=== PATIENT | female | born 1965 | race Caucasian/White ===

== ENCOUNTER 2019-02-22 18:04 | Outpatient (CLI) | payer BC | END 2019-02-22 18:05 | disposition critical access hospital (66) | LOC: EMS 18:04 | PROVIDERS: ATTEND Surgery | DX: R10.10 Upper abdominal pain, unspecified (principal); R06.02 Shortness of breath | CPT/HCPCS: A0425; A0427 ==

== ENCOUNTER 2019-02-22 18:26 | Emergency (ER) | payer BC ==
--- NOTE | 2019-02-22 18:52 | ED Physician Documentation ---
PD HPI ABD PAIN - Stated complaint Stated Complaint: ABD/CP PAIN - Chief complaint Chief Complaint: Abd Pain - History obtained from History obtained from: Patient, Family - History of Present Illness Timing - onset: Today Timing - duration: Hours (1) Timing - details: Abrupt onset Pain level max: 10 Pain level now: 2 Quality: Aching, Pain Location: Epigastric Radiation: Chest Improved by: Other (nothing) Worsened by: Other (nothing) Associated symptoms: Nausea. No: Fever, Vomiting, Hematemesis, Diarrhea, Constipation, Melena, Hematochezia, Dysuria, Hematuria Similar symptoms before: Diagnosis ("gallbladder attacks") Recently seen: Not recently seen Review of Systems Constitutional: denies: Fever, Chills Throat: denies: Sore throat Cardiac: denies: Chest pain / pressure Respiratory: denies: Cough GI: denies: Vomiting, Diarrhea Skin: denies: Rash Musculoskeletal: denies: Neck pain, Back pain PD PAST MEDICAL HISTORY - Past Medical History Past Medical History: Yes Endocrine/Autoimmune: HyPOthyroidism - Past Surgical History Past Surgical History: Yes /[employer]: Hysterectomy - Present Medications Home Medications: Ambulatory Orders Medication Instructions Recorded Confirmed Ondansetron Odt [Zofran] 4 mg TL Q6H PRN #10 tablet 02/22/19 Oxycodone HCl/Acetaminophen 1 - 2 each PO Q6H PRN #14 tablet 02/22/19 [Percocet 5-325 mg Tablet] Thyroid,Pork [Nature-Throid] 16.25 mg PO 02/22/19 - Allergies Allergies/Adverse Reactions: Allergies Allergy/AdvReac Type Severity Reaction Status Date / Time No Known Drug Allergies Allergy Verified 02/22/19 18:36 - Living Situation Living Situation: reports: With family Living Arrangement: reports: At home - Social History Does the pt smoke?: No Does the pt have substance abuse?: No - Family History Family history: reports: Non contributory PD ED PE NORMAL - Vitals Vital signs reviewed: Yes - General General: Alert and oriented X 3, No acute distress, Well developed/nourished - HEENT HEENT: PERRL, Moist mucous membranes - Neck Neck: Supple, no meningeal sign - Cardiac Cardiac: RRR, Strong equal pulses - Respiratory Respiratory: No respiratory distress, Clear bilaterally - Abdomen Abdomen: Soft, Non tender, Non distended - Back Back: No CVA TTP, No spinal TTP - Derm Derm: Warm and dry, No rash - Extremities Extremities: No edema, No calf tenderness / cord - Neuro Neuro: Alert and oriented X 3 - Psych Psych: Normal mood, Normal affect Results - Vitals Vitals: Vital Signs - 24 hr 02/22/19 02/22/19 02/22/19 18:34 19:16 21:22 Temperature 36.2 C L Heart Rate 94 78 79 Respiratory 16 13 16 Rate Blood Pressure 170/66 H 144/79 H 139/70 H O2 Saturation 99 97 96 Oxygen O2 Source Room air - EKG (time done) 1826 Rate: Rate (enter#) (79) Rhythm: NSR [place]: Normal Intervals: Normal [place] QRS: Normal Ischemia: Normal ST segments - Labs Labs: Laboratory Tests 02/22/19 02/22/19 02/22/19 14:48 14:48 19:00 WBC 8.8 RBC 4.73 Hgb 13.9 Hct 42.5 MCV 89.9 MCH 29.4 MCHC 32.7 RDW 13.2 Plt Count 253 MPV 10.1 Neut # (Auto) 6.4 Lymph # (Auto) 1.2 L [place] # (Auto) 0.7 Eos # (Auto) 0.5 Baso # (Auto) 0.1 Absolute Nucleated RBC 0.00 Nucleated RBC % 0.0 Sodium 139 Potassium 3.5 Chloride 103 Carbon Dioxide 23 Anion Gap 13.0 BUN 14 Creatinine 0.8 Estimated GFR (MDRD) 75 L Glucose 149 H Calcium 9.5 Total Bilirubin 0.6 AST 24 ALT 20 Alkaline Phosphatase 89 Total Protein 7.4 Albumin 4.2 Globulin 3.2 Albumin/Globulin Ratio 1.3 Lipase 37 Urine Color YELLOW Urine Clarity CLEAR Urine pH 5.0 Ur Specific [place] >=1.030 H Urine Protein NEGATIVE Urine Glucose (UA) NEGATIVE Urine Ketones NEGATIVE Urine Occult Blood NEGATIVE Urine Nitrite NEGATIVE Urine Bilirubin NEGATIVE Urine Urobilinogen 0.2 (NORMAL) Ur Leukocyte Esterase NEGATIVE Ur Microscopic Review NOT INDICATED Urine Culture Comments NOT INDICATED Urine HCG, Qual NEGATIVE - Rads (name of study) RUQ US Radiology: Prelim report reviewed, EMP read contemporaneously, See rad report (Cholelithiasis. Fatty liver.) PD MEDICAL DECISION MAKING - ED course Complexity details: reviewed results, re-evaluated patient, considered differential, d/w patient ED course: 53-year-old female with what appears to be biliary colic. Pain well controlled. Symptoms resolved. No cholecystitis on ultrasound. We will have her follow-up with surgery as an outpatient. She is well-appearing, nontoxic. Afebrile. No evidence of acute coronary syndrome. Patient counseled regarding signs and symptoms for which I believe and urgent re-evaluation would be necessary. Patient with good understanding of and agreement to plan and is comfortable going home at this time This document was made in part using voice recognition software. While efforts are made to proofread this document, sound alike and grammatical errors may occur. Departure - Departure Disposition: Home, Self Care Clinical Impression: Biliary colic Condition: Good Instructions: ED Gallstone W Biliary Colic Follow-Up: Ortega Van MD [Provider Admit Priv/Credential] - TERE EVANS [place] [Primary Care Provider] - Within 1 week Prescriptions: Ondansetron Odt [Zofran] 4 mg TL Q6H PRN #10 tablet PRN Reason: Nausea / Vomiting Oxycodone HCl/Acetaminophen [Percocet 5-325 mg Tablet] 1 - 2 each PO Q6H PRN #14 tablet PRN Reason: pain Comments: Return if you worsen. Follow-up with your doctor for further care. You should be referred to a surgeon to have your gallbladder removed. you should follow a low-fat diet. Return especially for worsening pain, fevers or vomiting. Do not drink alcohol or drive while on narcotic pain medicine. Note that many narcotic pain relievers also contain tylenol/acetaminophen. Please ensure that your total dose of acetaminophen from all sources does not exceed 3 grams (3000mg) per day. You may constipated on this medication, take a stool softener such as "Colace" twice a day while you are on it. Also recommend a [id number]-lty-genakpf laxative such as senna or MiraLAX any day that you do not have a bowel movement. If you received narcotic pain medication in the emergency department, do not drive or operate machinery for the next 24 hours. Discharge Date/Time: 02/22/19 21:41
[2019-02-22 18:54] LABS: BASOPHILS # (AUTO) 0.1 10^3/uL (0.0-0.1); BASOPHILS % (AUTO) 0.8 %; EOSINOPHILS # (AUTO) 0.5 10^3/uL (0.0-0.7); EOSINOPHILS % (AUTO) 5.2 %; HGB - HEMOGLOBIN 13.9 g/dL (12.0-16.0); LYMPHOCYTES # (AUTO) 1.2 10^3/uL (1.5-3.5); LYMPHOCYTES % (AUTO) 13.1 %; MEAN CORPUSCULAR HEMOGLOBIN 29.4 pg (27.0-31.0); MEAN CORPUSCULAR HGB CONC 32.7 g/dL (32.0-36.0); MEAN CORPUSCULAR VOLUME 89.9 fL (81.0-99.0); MEAN PLATELET VOLUME 10.1 fL (7.9-10.8); MONOCYTES # (AUTO) 0.7 10^3/uL (0.0-1.0); MONOCYTES % (AUTO) 8.3 %; NEUTROPHILS # (AUTO) 6.4 10^3/uL (1.5-6.6); NEUTROPHILS % (AUTO) 72.3 %; PLT - PLATELET COUNT 253 10^3/uL (130-450); RED BLOOD COUNT 4.73 10^6/uL (4.20-5.40); RED CELL DISTRIBUTION WIDTH 13.2 % (12.0-15.0); WHITE BLOOD COUNT 8.8 x10^3/uL (4.8-10.8)
[2019-02-22 19:03] LABS: BILIRUBIN,URINE NEGATIVE (NEGATIVE); GLUCOSE, URINE (UA) NEGATIVE (NEGATIVE); KETONES,URINE (UA) NEGATIVE (NEGATIVE); LEUKOCYTE ESTERASE, URINE NEGATIVE (NEGATIVE); NITRITE,URINE NEGATIVE (NEGATIVE); OCCULT BLOOD,URINE NEGATIVE (NEGATIVE); PROTEIN,URINE NEGATIVE (NEGATIVE); UROBILINOGEN,URINE 0.2 (NORMAL) E.U./dL (NORMAL)
[2019-02-22 19:06] LABS: CLARITY,URINE CLEAR (CLEAR)
[2019-02-22] MEDS ORDERED: HYDROmorphone 1 MG/ML CARPUJECT IVP STA (19:06)
[2019-02-22 19:07] LABS: HCG UR QUAL NEGATIVE
[2019-02-22 19:08] LABS: ALBUMIN 4.2 g/dL (3.2-5.5); ALBUMIN/GLOBULIN RATIO 1.3 (1.0-2.2); BILIRUBIN,TOTAL 0.6 mg/dL (0.2-1.0); CALCIUM 9.5 mg/dL (8.5-10.3); CREATININE 0.8 mg/dL (0.4-1.0); TOTAL PROTEIN 7.4 g/dL (6.7-8.2)
--- NOTE | 2019-02-22 20:38 | Ultrasound Report ---
Reason: RUQ abd pain Procedure Date: 02/22/2019 Accession Number: [id number] / [id number] Procedure: US - Abdomen Limited CPT Code: FULL RESULT: EXAM: ABDOMEN ULTRASOUND LIMITED, RUQ EXAM DATE: 02/22/2019 08:00 PM. CLINICAL HISTORY: RUQ abd pain. COMPARISON: None. TECHNIQUE: Real-time scanning was performed with static images obtained. FINDINGS: Liver: Diffusely echogenic. No masses. Normal overall size, 16.4 cm. Main portal vein flow: Hepatopetal. Gallbladder: Large gallstone measuring 3.1 cm with associated sludge versus tiny stones. No significant wall thickening. No localized tenderness. Biliary System: CBD measures 5 mm. No intrahepatic or extrahepatic ductal dilatation. Other: Unremarkable right kidney and visualized portions of pancreas. IMPRESSION: 1. Cholelithiasis. 2. Fatty liver. RADIA
[2019-02-22 21:22] VITALS: BP 139/70
== END 2019-02-22 21:41 | disposition home or self-care (01) ==
LOC: EDUNIT# → ED 18:26
DX: K80.20 Calculus of gallbladder without cholecystitis without obstruction (principal); K76.0 Fatty (change of) liver, not elsewhere classified
CPT/HCPCS: 36415; 76705; 80053; 81003; 81025; 83690; 85025; 93005; 96374; 99284; J1170; 81001; 87086

== ENCOUNTER 2019-07-27 09:16 | Outpatient (CLI) | payer BC ==
[2019-07-27 18:59] LABS: BASOPHILS # (AUTO) 0.1 10^3/uL (0.0-0.1); BASOPHILS % (AUTO) 1.3 %; EOSINOPHILS # (AUTO) 0.8 10^3/uL (0.0-0.7); EOSINOPHILS % (AUTO) 12.5 %; HGB - HEMOGLOBIN 13.7 g/dL (12.0-16.0); LYMPHOCYTES # (AUTO) 1.3 10^3/uL (1.5-3.5); LYMPHOCYTES % (AUTO) 21.4 %; MEAN CORPUSCULAR HEMOGLOBIN 28.7 pg (27.0-31.0); MEAN CORPUSCULAR HGB CONC 31.2 g/dL (32.0-36.0); MEAN CORPUSCULAR VOLUME 91.8 fL (81.0-99.0); MONOCYTES # (AUTO) 0.7 10^3/uL (0.0-1.0); MONOCYTES % (AUTO) 10.4 %; NEUTROPHILS # (AUTO) 3.4 10^3/uL (1.5-6.6); NEUTROPHILS % (AUTO) 54.2 %; PLT - PLATELET COUNT 252 10^3/uL (130-450); RED BLOOD COUNT 4.78 10^6/uL (4.20-5.40); RED CELL DISTRIBUTION WIDTH 13.6 % (12.0-15.0); WHITE BLOOD COUNT 6.3 x10^3/uL (4.8-10.8)
[2019-07-27 19:23] LABS: HEMOGLOBIN A1C 0.55 g/dL; HEMOGLOBIN A1C % 5.7 % (4.6-6.2)
[2019-07-27 19:25] LABS: THYROID STIMULATING HORMONE 0.12 uIU/mL (0.34-5.60)
[2019-07-27 19:26] LABS: FREE T4 (FREE THYROXINE) 0.66 ng/dL (0.58-1.64)
[2019-07-27 19:29] LABS: FERRITIN 61.2 ng/mL (11.0-306.8)
[2019-07-27 19:44] LABS: % IRON SATURATION 25 % (20-50); IRON 78 ug/dL (28-170); TOTAL IRON BINDING CAPACITY 309 ug/dL (250-450); TRANSFERRIN 221 mg/dL (192-382)
== END 2019-07-27 09:17 | disposition home or self-care (01) ==
LOC: LAB.S 09:16
PROVIDERS: ATTEND Naturopath
DX: E06.3 Autoimmune thyroiditis (principal)
CPT/HCPCS: 36415; 81599; 82728; 83036; 83525; 83540; 84439; 84443; 84466; 84481; 84482; 85025; 86376; 86800

== ENCOUNTER 2024-03-19 11:15 | Outpatient (CLI) | payer BC ==
--- NOTE | 2024-03-20 09:47 | Ultrasound Report ---
PROCEDURE: Abdomen Complete INDICATIONS: ABD PAIN TECHNIQUE: Real-time scanning was performed of the abdominal and retroperitoneal organs, with image documentatio n. COMPARISON: 02/22/2018 FINDINGS: Liver: Liver is normal in size and homogeneous in echotexture. Gallbladder: Absent. Biliary ducts: Intrahepatic bile ducts are non-dilated. Extrahepatic bile duct caliber measures 4 m m. Normal is 6-7 mm or less in diameter, or 10 mm or less post-cholecystectomy. Pancreas: Visualized portions of the pancreas are sonographically normal. Spleen: Spleen is normal in size and homogeneous in echotexture. Kidneys: Kidneys are normal in size and echotexture. Right kidney measures 10.9 cm long; left kidne y measures 10.9 cm long. Echogenic focus in the left-sided superior calyx measuring 1 cm. No solid ma sses. No complex renal cystic lesions which require follow-up. Aorta: Visualized aorta is normal in caliber at less than 3 cm. Iliacs: Proximal common iliac arteries are normal in caliber at less than 2.5 cm. IVC: Intrahepatic inferior vena cava is patent. Miscellaneous: No free abdominal fluid. IMPRESSION: Probable 1 cm nonenhancing left renal stone. Otherwise, unremarkable exam. Reviewed by: Erik Nick MD on 03/20/2024 9:46 AM PDT Approved by: Erik Nick MD on 03/20/2024 9:46 AM PDT Station ID: [id number]
== END 2024-03-19 11:16 | disposition home or self-care (01) ==
LOC: DI 11:15
PROVIDERS: ATTEND Naturopath
DX: R10.84 Generalized abdominal pain (principal); R19.7 Diarrhea, unspecified

== ENCOUNTER 2024-04-29 14:30 | Outpatient (CLI) | payer BC ==
[2024-04-30 03:16] LABS: ADENOVIRUS F 40/41 Not Detected (Not Detected); ASTROVIRUS Not Detected (Not Detected); C DIFFICILE TOXIN A/B Not Detected (Not Detected); CAMPYLOBACTER Not Detected (Not Detected); CRYPTOSPORIDIUM Not Detected (Not Detected); CYCLOSPORA CAYETANENSIS Not Detected (Not Detected); ENTAMOEBA HISTOLYTICA Not Detected (Not Detected); ENTEROAGGREGATIVE E COLI Not Detected (Not Detected); ENTEROPATHOGENIC E COLI Not Detected (Not Detected); ENTEROTOXIGENIC E COLI Not Detected (Not Detected); GIARDIA LAMBLIA Not Detected (Not Detected); NOROVIRUS GI/GII Not Detected (Not Detected); PLESIOMONAS SHIGELLOIDES Not Detected (Not Detected); ROTAVIRUS A Not Detected (Not Detected); SALMONELLA Not Detected (Not Detected); SAPOVIRUS Not Detected (Not Detected); SHIGA-TOXIN-PRODUCING E COLI Not Detected (Not Detected); SHIGELLA/ENTEROINVASIVE E COLI Not Detected (Not Detected); VIBRIO Not Detected (Not Detected); VIBRIO CHOLERAE Not Detected (Not Detected); YERSINIA ENTEROCOLITICA Not Detected (Not Detected)
== END 2024-04-29 14:31 | disposition home or self-care (01) ==
LOC: LAB.R 14:30
PROVIDERS: ATTEND Nurse Practitioner Acute Care
DX: R19.7 Diarrhea, unspecified (principal)
CPT/HCPCS: 83993; 87493; 87507